=== PATIENT | male | born 1960 | race Caucasian/White ===

== ENCOUNTER → 2017-03-03 | Outpatient (CLI) | payer MEDICARE, MEDICAID | END | disposition disaster alternative care site (69) | LOC: GRAD 07:45 | DX: Z87.891 Personal history of nicotine dependence (principal); Z92.3 Personal history of irradiation; Z98.890 Other specified postprocedural states | CPT/HCPCS: G0297 ==

== ENCOUNTER → 2017-03-27 | Outpatient (CLI) | payer MEDICARE, MEDICAID ==
--- NOTE | ~2017-03-27 | ESTC ---
Cardiac Perfusion Imaging Demographics Patient Name YAMINI Reed Gender Male Patient Number [id number] Race Visit Number [id number] Ethnicity Corporate ID Room Number Accession Number [id number] Height Date of 1960 Weight Age 57 year(s) BSA Referring Physician Rosi Cisneros MD BMI Interpreting Physician Charles Turner Date of study 03/27/2017 MD Supervising MD/MLP Charles Turner NM Technologist Nicci Gomez MD Ordering Physician Charles Turner Stress MD all source intelligence technician Stress ECG Reading Charles Turner Nurse Henrik Singer Physician The procedure was explained in detail to the patient. Risks, complications and alternative treatments were reviewed. Written consent was obtained. Medications Reviewed with Patient prior to Procedure. Procedure Procedure Type: Nuclear Stress Test:Pharmacological, Lexiscan, Cardiolite Stress Test Procedure Start time: 03/27/2017 09:15 Risk Factors The patient risk factors include:peripheral arterial disease, obesity, former tobacco use, hypercholesterolemia, hypertension, family history of premature CAD and dyslipidemia. Conclusions Summary Perfusion Images: The overall quality of the study is fair, due to gastrointestinal tracer uptake. Left ventricular cavity is noted to be normal on the stress and normal on the rest images. There is no evidence of abnormal lung activity. The right ventricle is not visualized an cannot be assessed. Impression ECG portion of lexiscan stress test is clinically negative for ischemia by diagnostic criteria. Myocardial perfusion imaging is essentially normal. Overall left ventricular systolic function was normal without regional wall motion abnormalities. Calculated LVEF is 61% and TID ratio is 1.04. There are no previous studies for comparison. Stress Protocols Resting ECG Normal sinus rhythm. Resting HR:65 bpm Resting BP:176/94 mmHg Pre-stress physical exam: Patient assessed by prior to testing. Stress Protocol:Pharmacologic Peak HR:68 bpm HR/BP product:[id number] Peak BP:177/91 mmHg Predicted HR: 162 bpm % of predicted HR: 42 ECG Findings No ECG changes suggestive of ischemia. Arrhythmias No rhythm abnormality. Symptoms No symptoms with Lexiscan infusion. Stress Interpretation Appropriate hemodynamic response to Lexiscan. No significant ST-T wave changes with Lexiscan. ECG portion is negative for ischemia by diagnostic criteria. Imaging Results Summed scores - Summed stress score: 4 - Summed rest score: 8 - Summed difference score: -4 Stress ejection Ejection fraction:61 % EDV :133 ml ESV :52 ml Stroke volume :81 ml LV mass :148 gr Imaging Protocols Rest Stress Isotope:Tc99m Sestamibi IV Isotope: Tc99m Sestamibi IV Isotope dose:14.7 mCi Isotope dose:44.8 mCi Date:03/27/2017 07:22 Date:03/27/2017 09:40 Technique: SPECT Technique: Gated Supine SPECT Supine Scan Time:45-60 minutes post Scan Time:45-60 minutes post injection injection Procedure Medications - Regadenoson (Lexiscan) 0.4 mg IV over 10-15 sec. I.V. 0.4 mg. Medications administered per verbal order and read back to physician prior to administration. Medical History Admission Data Admission date: 03/27/2017 Admission Time: 07:04 Hospital Status: Outpatient. Signatures dtt: ANSELMO HICKMAN dtd: 03/27/17 0915 Physician Self Edit
== END | disposition disaster alternative care site (69) ==
LOC: GRAD 07:04
DX: I20.9 Angina pectoris, unspecified (principal); I10 Essential (primary) hypertension; H00.012 Hordeolum externum right lower eyelid; Z79.01 Long term (current) use of anticoagulants
CPT/HCPCS: A9500; J2785

== ENCOUNTER 2017-04-05 00:22 | Emergency (ER) | payer MEDICARE, MEDICAID ==
--- NOTE | ~2017-04-05 | ER ---
PATIENT'S NAME: DESHAWN KC [facility] AGE: 57 Y [address] ROOM: [place] [address] LOCATION: [facility] ADMIT DATE: 04/05/2017 ER/Outpatient Report DISCHARGE DATE: 04/05/2017 FAMILY PHYSICIAN: Lane Aranda MD ATTENDING PHYSICIAN: Chad Weber Admission date and time documented in the medical record. I saw the patient at 0035 hours. CHIEF COMPLAINT: Right anterior chest pain. HISTORY OF PRESENT ILLNESS: This patient is a 57-year-old male, who was woken from sleep at 2300 hours this evening with sharp pain in right mid anterior chest. He said that "I felt like a red hot distributor advertising material my lung." No shortness of breath. No diaphoresis. No nausea or vomiting. No diarrhea. No urinary symptomatology. No lightheadedness, dizziness, syncope, or near syncope. He does have a headache, but no eyes, ears, nose, throat, neck, or spine pain. No fall or trauma. No recent colds, coughs, flus, fever, chills, or sweats. No joint or muscle swelling, redness, or pain. No skin eruptions or rash. No history of neuro changes, psych issues, endocrine problems. HOME MEDICATIONS: See attached medication list. ALLERGIES: NONE. SOCIAL HISTORY: Nonsmoker, nondrinker. SIGNIFICANT PAST MEDICAL HISTORY: Remote tobacco abuse, quit in 2008; DVT; PE; lung cancer; hypertension; chronic anticoagulation with Coumadin; dyslipidemia; benign prostatic hypertrophy; esophageal food bolus. OPERATIONS: Chemotherapy, radiation therapy, thrombectomy, adrenal gland tumor excision, esophagogastroduodenoscopy. REVIEW OF SYSTEMS: All systems reviewed by me are negative with the exception of those discussed in the history of the present illness. PATIENT'S NAME: DESHAWN KC [facility] AGE: 57 Y [address] ROOM: [place] [address] LOCATION: [facility] ADMIT DATE: 04/05/2017 ER/Outpatient Report DISCHARGE DATE: 04/05/2017 FAMILY PHYSICIAN: Lane Aranda MD ATTENDING PHYSICIAN: Chad Weber PHYSICAL EXAMINATION: VITAL SIGNS: Temperature 96.7 tympanic, pulse 80, respirations 16, blood pressure 213/113, O2 saturation on room air is 97%. Mary Coma Scale is 15. HEAD: Normocephalic. EYES, EARS, NOSE, THROAT: Clear. Mucous membranes moist. NECK: No nuchal rigidity. No thyromegaly or cervical adenopathy. No tenderness. SPINE: Nontender. No deformity. LUNGS: Clear. Good air flow. No rales, rhonchi, or wheezes. HEART: Regular. Pulses are palpable. No palpable chest pain on my exam. ABDOMEN: Soft, nondistended, nontender. Good bowel tones. No organomegaly or abnormal mass palpable. No CVA tenderness. EXTREMITIES: Intact. NEUROVASCULAR: Intact. SKIN: Clear. No skin eruptions or rash. LABORATORY DATA AND X-RAYS: EKG showed normal sinus rhythm. No acute ST elevation, ischemic change, or arrhythmia. Chest x-ray showed no acute infiltrate or changes. We will review x-ray with radiologist. Laboratory: ProBNP was normal at 71. D-dimer was normal less than 0.19. CMS was normal except for an elevated glucose 115, magnesium was 2. CPK was 76. Fuaov-br-ocel cardiac enzymes were normal. White count 7600, 78 segs, 12 lymphs, 8 monos, 2 eos, 1 baso. Hemoglobin was 14.9 with hematocrit 45.2, platelet count was 241,000. PTT was 48, pro-time was 27.6, and INR 2.6. EMERGENCY DEPARTMENT COURSE: The patient was given Toradol 30 mg plus morphine sulfate 2 mg IV in the emergency room with good improvement in his chest pain. IMPRESSION: 1. Right mid anterior chest pain, point tenderness, etiology uncertain but most likely musculoskeletal. No evidence of myocardial or pulmonary changes. 2. Chronic anticoagulation with Coumadin. 3. Hypertension. 4. Dyslipidemia. 5. Gastroesophageal reflux. 6. Past history of lung cancer. 7. Remote tobacco abuse. PLAN: The patient dismissed home. Observation. Activity as tolerated. Continue present home medications and care. Fluids and diet as tolerated. Toradol 10 PATIENT'S NAME: DESHAWN KC [facility] AGE: 57 Y [address] ROOM: [place] [address] LOCATION: ED ADMIT DATE: 04/05/2017 ER/Outpatient Report DISCHARGE DATE: 04/05/2017 FAMILY PHYSICIAN: Lane Aranda MD ATTENDING PHYSICIAN: Chad Weber mg 1 every 6 hours x12 doses; [place] 5/325 as needed for pain every 4 to 6 hours, #12. Heating pad to his anterior chest wall intermittently as needed. Follow up with personal physician in 3 to 5 days. Return sooner if needed. Discussion ensued with the patient concerning my findings and recommendations, he understands. MD MILLY CARRILLO/modl /[id number] d: 04/05/17 0430 t: 04/05/17 1809, OUTPATIENT REPORT
[2017-04-05 00:46] LABS: BASOPHIL # 0.1 K/uL (0.0-0.2); BASOPHIL % 0.7 %; EOSINOPHIL # 0.2 K/uL (0.0-0.5); EOSINOPHIL % 2.4 %; HEMATOCRIT 45.2 % (37.0-53.0); HEMOGLOBIN 14.9 g/dL (12.0-17.0); IMMATURE GRANULOCYTE % 0.4 %; LYMPHOCYTE # 0.9 K/uL (0.8-4.0); LYMPHOCYTE % 11.5 %; MCH 27.5 pg (27.0-34.0); MCV 83.5 fl (83.0-98.0); MONOCYTE # 0.6 K/uL (0.0-1.0); MONOCYTE % 7.5 %; NEUTROPHIL # (ANC) 5.9 K/uL (1.4-9.0); NEUTROPHIL % 77.5 %; NRBC % 0 /100WBC (0-0.00); PLATELET COUNT 241 K/uL (150-450); RBC 5.41 M/uL (4.00-6.00); RDW-CV 14.6 % (11.9-14.6); WBC 7.6 K/uL (4.0-11.0)
[2017-04-05 00:53] LABS: PROTIME 27.6 SECONDS (9.8-11.4); PTT 48 SECONDS (25-32)
[2017-04-05 01:04] LABS: ALBUMIN 3.8 gm/dL (3.5-5.0); ALK PHOS 67 IU/L (33-138); ALT 47 IU/L (12-78); AST 24 IU/L (10-40); BLOOD UREA NITROGEN 21 mg/dL (6-24); CALCIUM 8.5 mg/dL (8.5-10.5); CHLORIDE 106 mMol/L (96-110); CO2 23 mMol/L (22-32); CPK 76 IU/L (35-332); CREATININE 1.3 mg/dL (0.6-1.3); SODIUM 139 mMol/L (135-145); TOTAL BILIRUBIN 0.4 mg/dL (0.0-1.5); TOTAL PROTEIN 7.7 g/dL (6.0-8.4)
== END 2017-04-05 01:42 | disposition disaster alternative care site (69) ==
LOC: GMED 00:22
PROVIDERS: Emergency Medicine
DX: R07.89 Other chest pain (principal); I10 Essential (primary) hypertension; E78.5 Hyperlipidemia, unspecified; K21.9 Gastro-esophageal reflux disease without esophagitis; C34.90 Malignant neoplasm of unspecified part of unspecified bronchus or lung; N40.0 Benign prostatic hyperplasia without lower urinary tract symptoms; Z98.890 Other specified postprocedural states; Z79.01 Long term (current) use of anticoagulants; Z79.899 Other long term (current) drug therapy; Z87.891 Personal history of nicotine dependence; Z86.711 Personal history of pulmonary embolism; Z86.718 Personal history of other venous thrombosis and embolism
CPT/HCPCS: J1885; J2270